=== PATIENT | female | born 1965 | race American Indian/Alaskan Native ===

== ENCOUNTER 2016-10-14 09:16 | Emergency (ER) | payer BC ==
[2016-10-14] MEDS ORDERED: CATAPRES PO ONE (10:14)
--- NOTE | 2016-10-14 10:15 | Emergency Department Report ---
ED General Adult HPI - General Chief complaint: High BP Stated complaint: HIGH BP Time Seen by Provider: 10/14/16 09:59 Source: patient Mode of arrival: Ambulatory Limitations: No Limitations - History of Present Illness Initial comments: 51-year-old -[place] female comes in for elevated blood pressure. Patient reports she's been out of her blood pressure medicine for approximately one year. She reports that the medication that she was on her insurance company would not cover it so therefore she never changed over to another medication. Patient complains of still just a little tired she denies any chest pain or shortness of breath denies any dizziness or blurred vision no nausea no vomiting. She is in no pain at this time. Review of chart shows her blood pressures 202/104. Heart rate 99. - Related Data Previous Rx's Medication Instructions Recorded Last Taken Type Hydrochlorothiazide [HCTZ] 25 mg PO QDAY #90 tablet 10/14/16 Unknown Rx amLODIPine [Norvasc] 10 mg PO DAILY #90 tab 10/14/16 Unknown Rx Allergies Allergy/AdvReac Type Severity Reaction Status Date / Time No Known Allergies Allergy Verified 10/14/16 09:31 ED Review of Systems ROS: Stated complaint: HIGH BP Other details as noted in HPI Constitutional: denies: chills, fever Eyes: denies: eye pain, eye discharge, vision change ENT: denies: ear pain, throat pain Respiratory: denies: cough, shortness of breath, wheezing Cardiovascular: denies: chest pain, palpitations, edema Endocrine: no symptoms reported Gastrointestinal: denies: abdominal pain, nausea, vomiting, diarrhea Genitourinary: denies: urgency, dysuria, discharge Musculoskeletal: denies: back pain, joint swelling, arthralgia Skin: denies: rash Neurological: denies: headache, weakness ED Past Medical Hx - Medications Home Medications: Home Medications Medication Instructions Recorded Confirmed Last Taken Type Hydrochlorothiazide [HCTZ] 25 mg PO QDAY #90 tablet 10/14/16 Unknown Rx amLODIPine [Norvasc] 10 mg PO DAILY #90 tab 10/14/16 Unknown Rx ED Physical Exam - General Limitations: No Limitations - Head Head exam: Present: atraumatic, normocephalic - Eye Eye exam: Present: normal appearance, PERRL, EOMI Pupils: Present: normal accommodation, irregular - ENT ENT exam: Present: mucous membranes moist - Neck Neck exam: Present: normal inspection, full ROM. Absent: tenderness, lymphadenopathy, thyromegaly - Respiratory Respiratory exam: Present: normal lung sounds bilaterally. Absent: respiratory distress, wheezes, chest wall tenderness - Cardiovascular Cardiovascular Exam: Present: regular rate, normal rhythm, normal heart sounds - GI/Abdominal GI/Abdominal exam: Present: soft. Absent: distended, tenderness ED Course Vital Signs 10/14/16 10/14/16 10/14/16 09:31 10:22 12:04 Temperature 98.4 F Pulse Rate 99 H 99 H 75 Respiratory 18 16 Rate Blood Pressure 202/104 202/104 Blood Pressure 171/94 [Left] O2 Sat by Pulse 100 96 Oximetry ED Medical Decision Making - Lab Data Result diagrams: 10/14/16 10:42 10/14/16 10:42 - Medical Decision Making Assessment evaluated by this provider fast track. Discussed the patient that we will give her clonidine 0.1 mg to bring down her blood pressure at this time. We will order a CBC a BMP to check for kidney function. Discussed this patient that we will most likely discharge her home on hydrochlorothiazide 25 mg daily and Norvasc 10 mg one tablet by mouth daily we will refer her to a primary care provider. Discussed with her that she'll need to have her blood pressure checked in 1 week. Patient verbalized understanding Critical care attestation.: If time is entered above; I have spent that time in minutes in the direct care of this critically ill patient, excluding procedure time. ED Disposition Clinical Impression: HTN, goal below 130/80 Disposition: DISCHARGED TO HOME OR SELFCARE Is pt being admited?: No Does the pt Need Aspirin: No Condition: Stable Instructions: Hypertension (ED) Additional Instructions: Very important for her to take care how blood pressure medicine on a daily basis recommend to have your blood pressure rechecked in one week. If he develop any headaches vision change nausea vomiting to return back to the emergency room immediately. Prescriptions: amLODIPine [Norvasc] 10 mg PO DAILY #90 tab Hydrochlorothiazide [HCTZ] 25 mg PO QDAY #90 tablet Referrals: PRIMARY CAREMD [Primary Care Provider] - 3-5 Days DREW CABRALES MD [Staff Physician] - 3-5 Days Forms: Work/School Release Form(ED)
[2016-10-14 10:52] LABS: Hematocrit 41.2 % (30.3-42.9); Hemoglobin 13.6 gm/dl (10.1-14.3); Mean Corpuscular HGB Conc 33 % (30-34); Mean Corpuscular Hemoglobin 31 pg (28-32); Mean Corpuscular Volume 95 fl (79-97); Platelet Count 188 K/mm3 (140-440); Red Blood Count 4.34 M/mm3 (3.65-5.03); Red Cell Distribution Width 13.6 % (13.2-15.2)
[2016-10-14 11:46] LABS: Anion Gap 19 mmol/L; BUN/Creatinine Ratio 12.22; Blood Urea Nitrogen 11 mg/dL (7-17); Carbon Dioxide 23 mmol/L (22-30); Chloride 100.5 mmol/L (98-107); Glucose 100 mg/dL (65-100); Potassium 4.1 mmol/L (3.6-5.0); Sodium 138 mmol/L (137-145)
[2016-10-14 12:05] VITALS: BP 171/94
== END 2016-10-14 12:20 | disposition home or self-care (01) ==
LOC: ED 09:16
DX: I10 Essential (primary) hypertension (principal)
CPT/HCPCS: 36415; 80048; 85027; 99283

== ENCOUNTER 2018-12-14 12:38 | Emergency (ER) | payer BC ==
--- NOTE | 2018-12-14 12:53 | Emergency Department Report ---
Blank Doc - Documentation Documentation: This is a 43-year-old female that presents difficulty hearing from bilateral e ars. This initial assessment/diagnostic orders/clinical plan/treatment(s) is/are subject to change based on patient's health status, clinical progression and re- assessment by fellow clinical providers in the ED. Further treatment and workup at subsequent clinical providers discretion. Patient/guardians urged not to elope from the ED as their condition may be serious if not clinically assessed a nd managed. Initial orders include: 1- Patient sent to [facility] for further evaluation and treatment
[2018-12-14 12:54] VITALS: BP 197/103
[2018-12-14] MEDS ORDERED: AUGMENTIN 875 MG PO ONE (13:32)
--- NOTE | 2018-12-14 13:33 | Emergency Department Report ---
Minor Respiratory - HPI Chief Complaint: Earache Stated Complaint: DIFFICULT HEARING Time Seen by Provider: 12/14/18 12:51 Duration: 1 month Pain Location: Ear (bilateral) Severity: severe Minor Respiratory: Yes Rhinorrhea, Yes Able to Tolerate Fluids, Yes Ear Pain (pressure), No Sore Throat, No Cough, No Sick Contacts, No Hemoptysis, No Chest Pain, No Shortness of Breath, No Fever Other History: Ms. Avina is a 52-year-old female who presents with decreased hearing in both ears. She has had nasal congestion. The ears are "clogged up". No fever. No trauma. ED Review of Systems ROS: Stated complaint: DIFFICULT HEARING Other details as noted in HPI Constitutional: denies: fever, malaise ENT: hearing loss, congestion. denies: dental pain, epistaxis Respiratory: denies: cough, shortness of breath ED Past Medical Hx - Past Medical History Previous Medical History?: No - Surgical History Past Surgical History?: No - Social History Smoking Status: Current Every Day Smoker Substance Use Type: None - Medications Home Medications: Home Medications Medication Instructions Recorded Confirmed Last Taken Type amLODIPine [Norvasc] 10 mg PO DAILY #90 tab 10/14/16 Unknown Rx hydroCHLOROthiazide [HCTZ] 25 mg PO QDAY #90 tablet 10/14/16 Unknown Rx Amoxicillin/Potassium Clav 1 each PO BID 10 Days #20 tablet 12/14/18 Unknown Rx [Augmentin 875-125 Tablet] Minor Respiratory Exam - Exam General: Vital signs noted. No distress. Alert and acting appropriately. Bilateral tympanic membrane: Erythematous with purulent effusion retracted HEENT: Yes Moist Mucous Membranes, No Pharyngeal Erythema, No Pharyngeal Exudates, No Rhinorrhea, No Conjuctival Injection Ear: Both TM Bulge, Both TM Erythema, Neither EAC Pain, Neither EAC Discharge Neck: Yes Supple Lungs: No Labored Respirations, No Retractions, No Use of Accessory Muscles Neurologic: Alert and oriented, no deficits. Musculoskeletal: Unremarkable. ED Course Vital Signs 12/14/18 12:52 Temperature 98.3 F Pulse Rate 98 H Respiratory 16 Rate Blood Pressure 197/103 O2 Sat by Pulse 99 Oximetry ED Medical Decision Making - Medical Decision Making Bilateral otitis media prescribed Augmentin and referred to physician regional sales executive Critical care attestation.: If time is entered above; I have spent that time in minutes in the direct care of this critically ill patient, excluding procedure time. ED Disposition Clinical Impression: Bilateral otitis media with effusion Disposition: TO HOME OR SELFCARE Is pt being admited?: No Does the pt Need Aspirin: No Condition: Stable Instructions: Otitis Media (ED) Prescriptions: Amoxicillin/Potassium Clav [Augmentin 875-125 Tablet] 1 each PO BID 10 Days #20 tablet Referrals: DREW CABRALES MD [Staff Physician] - 3-5 Days
== END 2018-12-14 13:46 | disposition home or self-care (01) ==
LOC: ED 12:38
DX: H65.93 Unspecified nonsuppurative otitis media, bilateral (principal); F17.200 Nicotine dependence, unspecified, uncomplicated
CPT/HCPCS: 99282

== ENCOUNTER 2019-02-15 16:21 | Outpatient (CLI) | payer BC ==
[2019-02-15 16:49] LABS: Basophils % (Auto) 0.5 % (0.0-1.8); Eosinophils # (Auto) 0.1 K/mm3 (0.0-0.4); Eosinophils % (Auto) 1.2 % (0.0-4.3); Hematocrit 42.4 % (30.3-42.9); Hemoglobin 14.5 gm/dl (10.1-14.3); Lymphocytes # (Auto) 2.8 K/mm3 (1.2-5.4); Lymphocytes % (Auto) 40.1 % (13.4-35.0); Mean Corpuscular HGB Conc 34 % (30-34); Mean Corpuscular Volume 95 fl (79-97); Monocytes # (Auto) 0.7 K/mm3 (0.0-0.8); Monocytes % (Auto) 10.3 % (0.0-7.3); Platelet Count 216 K/mm3 (140-440); Red Blood Count 4.45 M/mm3 (3.65-5.03); Red Cell Distribution Width 13.5 % (13.2-15.2)
[2019-02-15 17:05] LABS: Alanine Aminotransferase 27 units/L (7-56); Albumin 4.3 g/dL (3.9-5); BUN/Creatinine Ratio 14; Blood Urea Nitrogen 13 mg/dL (7-17); Calcium 9.1 mg/dL (8.4-10.2); HDL Cholesterol 43 mg/dL (40-59); Hemolysis Index 9; LDL Cholesterol,Direct 119 mg/dL (50-130)
== END 2019-02-15 16:22 | disposition home or self-care (01) ==
LOC: LAB 16:21
PROVIDERS: ATTEND Internal Medicine
DX: E78.00 Pure hypercholesterolemia, unspecified (principal); E88.9 Metabolic disorder, unspecified; R68.89 Other general symptoms and signs; E03.9 Hypothyroidism, unspecified; E11.9 Type 2 diabetes mellitus without complications
CPT/HCPCS: 36415; 80053; 80061; 83036; 84443; 85025

== ENCOUNTER 2019-04-10 12:52 | Observation (INO) | payer BC ==
--- NOTE | 2019-04-10 13:04 | Event Note ---
ED Screening Note Date of service: 04/10/19 Time: 13:01 ED Screening Note: 54 y/o female comes in for increase thirst and urinating times 1 month. Went to [facility] reports that BS was 700 per patient. Triage BS >500. This initial assessment/diagnostic orders/clinical plan/treatment(s) is/are subject to change based on patients health status, clinical progression and re- assessment by fellow clinical providers in the ED. Further treatment and workup at subsequent clinical providers discretion. Patient/guardian urged not to elope from the ED as their condition may be serious if not clinically assessed and managed. Initial orders include:
[2019-04-10] MEDS ORDERED: NACL 0.9% 1000 ML 2,000 ML IV ONE (13:06)
--- NOTE | 2019-04-10 13:14 | Emergency Department Report ---
ED General Adult HPI - General Chief complaint: Hyperglycemia Stated complaint: HIGH GLUCOSE Time Seen by Provider: 04/10/19 13:01 Source: patient, family Mode of arrival: Ambulatory Limitations: No Limitations - History of Present Illness Initial comments: 54-year-old female has been experiencing polyuria polydipsia polyphagia for the last several days to weeks. She finally presented to the emergency department and was found to have hyperglycemia. She was also found to have hypertension. She does have a history of hypertension but admitted noncompliance. She denies difficulty in breathing chest pain abdominal pain or any other symptoms. -: Gradual, days(s), week(s) Associated Symptoms: other - Related Data Previous Rx's Medication Instructions Recorded Last Taken Type amLODIPine [Norvasc] 10 mg PO DAILY #90 tab 10/14/16 Unknown Rx hydroCHLOROthiazide [HCTZ] 25 mg PO QDAY #90 tablet 10/14/16 Unknown Rx Amoxicillin/Potassium Clav 1 each PO BID 10 Days #20 tablet 12/14/18 Unknown Rx [Augmentin 875-125 Tablet] Allergies Allergy/AdvReac Type Severity Reaction Status Date / Time No Known Allergies Allergy Verified 10/14/16 09:31 ED Review of Systems ROS: Stated complaint: HIGH GLUCOSE Other details as noted in HPI Constitutional: denies: chills, fever Eyes: denies: eye pain, eye discharge, vision change ENT: denies: ear pain, throat pain Respiratory: denies: cough, shortness of breath, wheezing Cardiovascular: denies: chest pain, palpitations Endocrine: see HPI, increased hunger, increased thirst Gastrointestinal: denies: abdominal pain, nausea, diarrhea Genitourinary: frequency. denies: urgency, dysuria, discharge Musculoskeletal: denies: back pain, joint swelling, arthralgia Skin: denies: rash, lesions Neurological: denies: headache, weakness, paresthesias Psychiatric: denies: anxiety, depression Hematological/Lymphatic: denies: easy bleeding, easy bruising ED Past Medical Hx - Past Medical History Hx Hypertension: Yes - Surgical History Additional Surgical History: HYSTERECTOMY - Social History Smoking Status: Current Every Day Smoker Substance Use Type: Alcohol - Medications Home Medications: Home Medications Medication Instructions Recorded Confirmed Last Taken Type amLODIPine [Norvasc] 10 mg PO DAILY #90 tab 10/14/16 Unknown Rx hydroCHLOROthiazide [HCTZ] 25 mg PO QDAY #90 tablet 10/14/16 Unknown Rx Amoxicillin/Potassium Clav 1 each PO BID 10 Days #20 tablet 12/14/18 Unknown Rx [Augmentin 875-125 Tablet] ED Physical Exam - General Limitations: No Limitations General appearance: alert, in no apparent distress - Head Head exam: Present: atraumatic, normocephalic - Eye Eye exam: Present: normal appearance. Absent: scleral icterus - ENT ENT exam: Present: mucous membranes moist - Neck Neck exam: Present: normal inspection - Respiratory Respiratory exam: Present: normal lung sounds bilaterally. Absent: respiratory distress - Cardiovascular Cardiovascular Exam: Present: regular rate, normal rhythm. Absent: systolic murmur, diastolic murmur, rubs, gallop - GI/Abdominal GI/Abdominal exam: Present: soft, normal bowel sounds. Absent: distended, tenderness, guarding, rebound, rigid - Extremities Exam Extremities exam: Present: normal inspection - Back Exam Back exam: Present: normal inspection - Neurological Exam Neurological exam: Present: alert, oriented X3, CN II-XII intact. Absent: motor sensory deficit - Psychiatric Psychiatric exam: Present: normal affect, normal mood - Skin Skin exam: Present: warm, dry, intact, normal color. Absent: rash ED Course Vital Signs 04/10/19 04/10/19 04/10/19 13:03 13:36 13:54 Temperature 98.0 F 97.9 F Pulse Rate 82 83 Respiratory 18 16 16 Rate Blood Pressure 213/121 209/117 Blood Pressure 162/96 [Right] O2 Sat by Pulse 100 100 100 Oximetry - Reevaluation(s) Reevaluation #1: Discussed with Dr. Sarabia. Admit to OBS for further stabilization. 04/10/19 14:43 ED Medical Decision Making - Lab Data Result diagrams: 04/10/19 Unknown 04/10/19 Unknown Laboratory Results - last 24 hr 04/10/19 04/10/19 04/10/19 13:10 Unknown Unknown WBC 6.6 RBC 4.82 Hgb 15.6 H Hct 45.5 H MCV 94 MCH 32 MCHC 34 RDW 13.0 L Plt Count 201 Lymph % (Auto) 33.9 Braxton % (Auto) 9.4 H Eos % (Auto) 0.7 Baso % (Auto) 0.4 Lymph # 2.2 Braxton # 0.6 Eos # 0.0 Baso # 0.0 Seg Neutrophils % 55.6 Seg Neutrophils # 3.7 VBG pH Sodium 134 L Potassium 4.4 Chloride 96.1 L Carbon Dioxide 26 Anion Gap 16 BUN 16 Creatinine 0.8 Estimated GFR > 60 BUN/Creatinine Ratio 20 Glucose 626 H* POC Glucose > 500 H Calcium 9.8 Total Bilirubin 0.70 AST 14 ALT 22 Alkaline Phosphatase 122 Total Protein 7.7 Albumin 4.5 Albumin/Globulin Ratio 1.4 04/10/19 Unknown WBC RBC Hgb Hct MCV MCH MCHC RDW Plt Count Lymph % (Auto) Braxton % (Auto) Eos % (Auto) Baso % (Auto) Lymph # Braxton # Eos # Baso # Seg Neutrophils % Seg Neutrophils # VBG pH 7.337 Sodium Potassium Chloride Carbon Dioxide Anion Gap BUN Creatinine Estimated GFR BUN/Creatinine Ratio Glucose POC Glucose Calcium Total Bilirubin AST ALT Alkaline Phosphatase Total Protein Albumin Albumin/Globulin Ratio - EKG Data -: EKG Interpreted by Ga EKG shows normal: sinus rhythm, axis, intervals, QRS complexes, ST-T waves - EKG Data Interpretation: LVH (suggestive findings of deep terminal S) - Radiology Data Radiology results: report reviewed (no acute process) Critical care attestation.: If time is entered above; I have spent that time in minutes in the direct care of this critically ill patient, excluding procedure time. ED Disposition Clinical Impression: Accelerated hypertension, New onset type 2 diabetes mellitus Disposition: OP ADMIT IP TO THIS HOSP Is pt being admited?: Yes Does the pt Need Aspirin: Yes Condition: Stable Instructions: Hypertension (ED), Diabetes Mellitus Type 2 in Adults (ED) Time of Disposition: 14:42
[2019-04-10] MEDS ORDERED: NACL 0.9% 1000 ML 2,000 ML ONE (13:21)
[2019-04-10] MEDS ORDERED: NORMODYNE IV ONE ×3 (13:31→14:38)
[2019-04-10 13:59] LABS: Basophils % (Auto) 0.4 % (0.0-1.8); Eosinophils % (Auto) 0.7 % (0.0-4.3); Hematocrit 45.5 % (30.3-42.9); Hemoglobin 15.6 gm/dl (10.1-14.3); Lymphocytes # (Auto) 2.2 K/mm3 (1.2-5.4); Lymphocytes % (Auto) 33.9 % (13.4-35.0); Mean Corpuscular HGB Conc 34 % (30-34); Mean Corpuscular Volume 94 fl (79-97); Monocytes # (Auto) 0.6 K/mm3 (0.0-0.8); Monocytes % (Auto) 9.4 % (0.0-7.3); Platelet Count 201 K/mm3 (140-440); Red Blood Count 4.82 M/mm3 (3.65-5.03)
[2019-04-10 14:04] LABS: Alanine Aminotransferase 22 units/L (7-56); Albumin 4.5 g/dL (3.9-5); BUN/Creatinine Ratio 20; Blood Urea Nitrogen 16 mg/dL (7-17); Calcium 9.8 mg/dL (8.4-10.2); Hemolysis Index 7
--- NOTE | 2019-04-10 14:04 | XRay Report ---
CHEST 1 VIEW 04/10/2019 1:37 PM INDICATION / CLINICAL INFORMATION: hypertension. COMPARISON: None available. FINDINGS: SUPPORT DEVICES: None. HEART / MEDIASTINUM: No significant abnormality. LUNGS / PLEURA: No significant pulmonary or pleural abnormality. No pneumothorax. ADDITIONAL FINDINGS: No significant additional findings. IMPRESSION: No significant abnormality of the chest. Signer Name: Mason Narvaez MD Signed: 04/10/2019 1:59 PM Workstation Name: [id number]
[2019-04-10] MEDS ORDERED: NACL 0.9% 1000 ML 1,000 ML IV ONE (14:12)
[2019-04-10] MEDS ORDERED: HumuLIN R IV ONE (14:14)
[2019-04-10] MEDS ORDERED: ASPIRIN PO ONE (14:44)
[2019-04-10 16:00] LABS: Bilirubin,Urine NEG (Negative); Blood,Urine SM (Negative); Color,Urine Colorless (Yellow); Mucus,Urine FEW /HPF; Protein,Urine <15 mg/dL mg/dL (Negative); Urobilinogen,Urine < 2.0 mg/dL (<2.0); WBC,Urine < 1.0 /HPF (0.0-6.0)
[2019-04-10] MEDS ORDERED: ASPIRIN ONE (17:28)
[2019-04-10] MEDS ORDERED: SODIUM CHLORIDE FLUSH SYRINGE 10 ML IV PRN (21:15)
[2019-04-10] MEDS ORDERED: ZOFRAN IV PRN (21:15)
[2019-04-10] MEDS ORDERED: REGLAN IV PRN (21:15)
[2019-04-10] MEDS ORDERED: DILAUDID IV PRN (21:15)
[2019-04-10] MEDS ORDERED: PERCOCET 5/325 PO PRN (21:15)
[2019-04-10] MEDS ORDERED: TYLENOL PO PRN (21:15)
--- NOTE | 2019-04-10 21:15 | History and Physical Report ---
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 Past Medical History Hypertension Surgical History HYSTERECTOMY Social History Smoking Status: Current Every Day Smoker Substance Use Type: Alcohol Family History Htn Medications Home Medications: Home Medications Medication Instructions Recorded Confirmed Last Taken Type amLODIPine [Norvasc] 10 mg PO DAILY #90 tab 10/14/16 Unknown Rx hydroCHLOROthiazide [HCTZ] 25 mg PO QDAY #90 tablet 10/14/16 Unknown Rx Amoxicillin/Potassium Clav 1 each PO BID 10 Days #20 tablet 12/14/18 Unknown Rx [Augmentin 875-125 Tablet] Review of Systems ROS: Stated complaint: HIGH GLUCOSE Other details as noted in HPI Constitutional: denies: chills, fever Eyes: denies: eye pain, eye discharge, vision change ENT: denies: ear pain, throat pain Respiratory: denies: cough, shortness of breath, wheezing Cardiovascular: denies: chest pain, palpitations Endocrine: see HPI, increased hunger, increased thirst Gastrointestinal: denies: abdominal pain, nausea, diarrhea Genitourinary: frequency. denies: urgency, dysuria, discharge Musculoskeletal: denies: back pain, joint swelling, arthralgia Skin: denies: rash, lesions Neurological: denies: headache, weakness, paresthesias Psychiatric: denies: anxiety, depression Hematological/Lymphatic: denies: easy bleeding, easy bruising Medications and Allergies Allergies Allergy/AdvReac Type Severity Reaction Status Date / Time No Known Allergies Allergy Verified 10/14/16 09:31 Home Medications Medication Instructions Recorded Confirmed Last Taken Type amLODIPine [Norvasc] 10 mg PO DAILY #90 tab 10/14/16 04/10/19 04/09/19 Rx hydroCHLOROthiazide [HCTZ] 25 mg PO QDAY #90 tablet 10/14/16 04/10/19 04/09/19 Rx Exam - Constitutional Vitals: Temp Pulse Resp BP Pulse Ox 98 F 98 H 16 165/86 100 04/10/19 18:24 04/10/19 18:24 04/10/19 18:24 04/10/19 18:24 04/10/19 18:24 General appearance: Present: no acute distress, well-nourished - EENT Eyes: Present: PERRL ENT: hearing intact, clear oral mucosa - Neck Neck: Present: supple, normal ROM - Respiratory Respiratory effort: normal Respiratory: bilateral: CTA - Cardiovascular Heart rate: 76 Heart Sounds: Present: S1 & S2. Absent: rub, click - Extremities Extremities: no ischemia, pulses intact, pulses symmetrical, No edema Peripheral Pulses: within normal limits - Abdominal General gastrointestinal: Present: soft, non-tender, non-distended, normal bowel sounds Female genitourinary: Present: normal - Integumentary Integumentary: Present: clear, warm, dry - Musculoskeletal Musculoskeletal: gait normal, strength equal bilaterally - Psychiatric Psychiatric: appropriate mood/affect, intact judgment & insight - Neurologic Neurologic: CNII-XII intact, moves all extremities - Allied Health Allied health notes reviewed: nursing, case management Results - Labs CBC & Chem 7: 04/11/19 05:47 04/10/19 Unknown Labs: Laboratory Last Values WBC 6.6 K/mm3 (4.5-11.0) 04/10/19 Unknown RBC 4.82 M/mm3 (3.65-5.03) 04/10/19 Unknown Hgb 15.6 gm/dl (10.1-14.3) H 04/10/19 Unknown Hct 45.5 % (30.3-42.9) H 04/10/19 Unknown MCV 94 fl (79-97) 04/10/19 Unknown MCH 32 pg (28-32) 04/10/19 Unknown MCHC 34 % (30-34) 04/10/19 Unknown RDW 13.0 % (13.2-15.2) L 04/10/19 Unknown Plt Count 201 K/mm3 (140-440) 04/10/19 Unknown Lymph % (Auto) 33.9 % (13.4-35.0) 04/10/19 Unknown [place] % (Auto) 9.4 % (0.0-7.3) H 04/10/19 Unknown Eos % (Auto) 0.7 % (0.0-4.3) 04/10/19 Unknown Baso % (Auto) 0.4 % (0.0-1.8) 04/10/19 Unknown Lymph # 2.2 K/mm3 (1.2-5.4) 04/10/19 Unknown [place] # 0.6 K/mm3 (0.0-0.8) 04/10/19 Unknown Eos # 0.0 K/mm3 (0.0-0.4) 04/10/19 Unknown Baso # 0.0 K/mm3 (0.0-0.1) 04/10/19 Unknown Seg Neutrophils % 55.6 % (40.0-70.0) 04/10/19 Unknown Seg Neutrophils # 3.7 K/mm3 (1.8-7.7) 04/10/19 Unknown VBG pH 7.337 (7.320-7.420) 04/10/19 Unknown Sodium 134 mmol/L (137-145) L 04/10/19 Unknown Potassium 4.4 mmol/L (3.6-5.0) 04/10/19 Unknown Chloride 96.1 mmol/L (98-107) L 04/10/19 Unknown Carbon Dioxide 26 mmol/L (22-30) 04/10/19 Unknown 16 mmol/L 04/10/19 Unknown BUN 16 mg/dL (7-17) 04/10/19 Unknown 0.8 mg/dL (0.7-1.2) 04/10/19 Unknown Estimated GFR > 60 ml/min 04/10/19 Unknown 20 % 04/10/19 Unknown Glucose 626 mg/dL (65-100) H* 04/10/19 Unknown POC Glucose 296 (70-105) H 04/10/19 18:27 Calcium 9.8 mg/dL (8.4-10.2) 04/10/19 Unknown 0.70 mg/dL (0.1-1.2) 04/10/19 Unknown AST 14 units/L (5-40) 04/10/19 Unknown ALT 22 units/L (7-56) 04/10/19 Unknown 122 units/L (35-129) 04/10/19 Unknown 7.7 g/dL (6.3-8.2) 04/10/19 Unknown 4.5 g/dL (3.9-5) 04/10/19 Unknown 1.4 % 04/10/19 Unknown Colorless (Yellow) 04/10/19 13:23 Clear (Clear) 04/10/19 13:23 5.0 (5.0-7.0) 04/10/19 13:23 Ur Specific [place] 1.027 (1.003-1.030) 04/10/19 13:23 <15 mg/dl mg/dL (Negative) 04/10/19 13:23 >=500 mg/dL (Negative) 04/10/19 13:23 Neg mg/dL (Negative) 04/10/19 13:23 Sm (Negative) 04/10/19 13:23 Neg (Negative) 04/10/19 13:23 Neg (Negative) 04/10/19 13:23 < 2.0 mg/dL (<2.0) 04/10/19 13:23 Ur Leukocyte Esterase Neg (Negative) 04/10/19 13:23 < 1.0 /HPF (0.0-6.0) 04/10/19 13:23 1.0 /HPF (0.0-6.0) 04/10/19 13:23 U Epithel Cells (Auto) < 1.0 /HPF (0-13.0) 04/10/19 13:23 Few /HPF 04/10/19 13:23 Short CBC 04/10/19 04/11/19 Range/Units Unknown 05:47 WBC 6.6 6.1 (4.5-11.0) K/mm3 Hgb 15.6 H 13.9 (10.1-14.3) gm/dl Hct 45.5 H 39.8 (30.3-42.9) % Plt Count 201 171 (140-440) K/mm3 BMP 04/10/19 Unknown Sodium 134 L Potassium 4.4 Chloride 96.1 L Carbon Dioxide 26 BUN 16 Creatinine 0.8 Glucose 626 H* Calcium 9.8 Liver Function 04/10/19 Range/Units Unknown Total Bilirubin 0.70 (0.1-1.2) mg/dL AST 14 (5-40) units/L ALT 22 (7-56) units/L Alkaline Phosphatase 122 (35-129) units/L Albumin 4.5 (3.9-5) g/dL Urine 08/19/19 Range/Units 13:23 Urine Color Colorless (Yellow) Urine pH 5.0 (5.0-7.0) Ur Specific [place] 1.027 (1.003-1.030) Urine Protein <15 mg/dl (Negative) mg/dL Urine Glucose (UA) >=500 (Negative) mg/dL - Imaging and Cardiology EKG: report reviewed (NSR 77/min LVH) Chest x-ray: report reviewed (NAF) Assessment and Plan Advance Directives: Yes (Full code) VTE prophylaxis?: Chemical Plan of care discussed with patient/family: Yes - Patient Problems (1) Diabetic hyperosmolar non-ketotic state Current Visit: Yes Status: Acute Plan to address problem: Patient presents with new onset diabetes Hba1c of 12 Hyperosmolar state--moderate Started on frequent accucheks q4h and High dose s/s coverage Also started on Novolog mix 15 units bid Dosage to be adjusted accordingly (2) Hypertensive emergency without congestive heart failure Current Visit: Yes Status: Acute Plan to address problem: Was given IV Hydralazine IV labetolol Added Amlodipine 10 mg po qd and Losartan 100 mg po qd (3) Noncompliance Current Visit: Yes Status: Chronic Plan to address problem: Counselled about untreated Htn and DM (4) New onset type 2 diabetes mellitus Current Visit: Yes Status: Acute Plan to address problem: Patient to be educated on Diabetes and follow up with pcp on regular basis (5) DVT prophylaxis Current Visit: Yes Status: Acute Plan to address problem: On Lovenox and GI prophylaxis
[2019-04-10] MEDS: PEPCID IV SCH (23:05)
[2019-04-10] MEDS: HumaLOG SUB-Q SCH (23:05)
[2019-04-10] MEDS: SODIUM CHLORIDE FLUSH SYRINGE 10 ML IV SCH (23:05)
[2019-04-10] MEDS: NACL 0.9% 1000 ML 1,000 ML IV SCH (23:27)
[2019-04-10] MEDS: APRESOLINE IV PRN (23:45)
[2019-04-11] MEDS: HumaLOG SUB-Q SCH ×6 (02:11→23:36)
[2019-04-11 06:07] LABS: Basophils % (Auto) 0.5 % (0.0-1.8); Eosinophils # (Auto) 0.1 K/mm3 (0.0-0.4); Eosinophils % (Auto) 1.1 % (0.0-4.3); Hematocrit 39.8 % (30.3-42.9); Hemoglobin 13.9 gm/dl (10.1-14.3); Lymphocytes # (Auto) 2.2 K/mm3 (1.2-5.4); Lymphocytes % (Auto) 36.9 % (13.4-35.0); Mean Corpuscular HGB Conc 35 % (30-34); Mean Corpuscular Volume 93 fl (79-97); Monocytes # (Auto) 0.6 K/mm3 (0.0-0.8); Monocytes % (Auto) 10.2 % (0.0-7.3); Platelet Count 171 K/mm3 (140-440); Red Blood Count 4.27 M/mm3 (3.65-5.03); Red Cell Distribution Width 12.9 % (13.2-15.2)
[2019-04-11 06:37] LABS: Alanine Aminotransferase 18 units/L (7-56); Albumin 3.5 g/dL (3.9-5); BUN/Creatinine Ratio 17; Blood Urea Nitrogen 10 mg/dL (7-17); Calcium 8.7 mg/dL (8.4-10.2); Hemolysis Index 8
[2019-04-11] MEDS: COZAAR PO SCH (08:15)
[2019-04-11] MEDS: APRESOLINE IV PRN (08:19)
[2019-04-11] MEDS: HCTZ PO SCH (10:46)
[2019-04-11] MEDS: NORVASC PO SCH (10:46)
[2019-04-11] MEDS: PEPCID IV SCH (10:47)
[2019-04-11] MEDS: SODIUM CHLORIDE FLUSH SYRINGE 10 ML IV SCH ×2 (10:47→21:57)
[2019-04-11] MEDS: NACL 0.9% 1000 ML 1,000 ML IV SCH (12:45)
--- NOTE | 2019-04-11 15:33 | Progress Note ---
Assessment and Plan / Diabetic hyperosmolar non-ketotic state Patient presented with new onset diabetes Hba1c of 12 Hyperosmolar state--moderate Started on frequent accucheks q4h and High dose s/s coverage Also started on Novolog mix 15 units bid - will increase to 20 BID Dosage to be adjusted accordingly / Hypertensive emergency without congestive heart failure Was given IV Hydralazine IV labetolol Added Amlodipine 10 mg po qd and Losartan 100 mg po qd / Noncompliance Counselled about untreated Htn and DM /hypokalemia, repleted / New onset type 2 diabetes mellitus Patient to be educated on Diabetes and follow up with pcp on regular basis /DVT prophylaxis On Lovenox and GI prophylaxis Subjective Date of service: 04/11/19 Interval history: Patient seen and examined denies any chest pain or SOB BG still > 300s counselled and updated at bedside Objective - Constitutional Vitals: Vital Signs - 12hr 04/11/19 04/11/19 04/11/19 05:59 08:15 08:19 Temperature 98.7 F Pulse Rate 75 78 78 Respiratory 20 Rate Blood Pressure 166/97 210/106 210/106 O2 Sat by Pulse 95 Oximetry 04/11/19 04/11/19 10:43 10:46 Temperature 98.5 F Pulse Rate 90 85 Respiratory 16 Rate Blood Pressure 185/102 185/102 O2 Sat by Pulse 98 Oximetry General appearance: Present: no acute distress, well-nourished - EENT Eyes: PERRL, EOM intact ENT: hearing intact, clear oral mucosa Ears: bilateral: normal - Neck Neck: supple, normal ROM - Respiratory Respiratory effort: normal Respiratory: bilateral: CTA - Cardiovascular Rhythm: regular Heart Sounds: Present: S1 & S2. Absent: gallop, rub Extremities: pulses intact, No edema, normal color, Full ROM - Gastrointestinal General gastrointestinal: Present: soft, non-tender, non-distended, normal bowel sounds - Integumentary Integumentary: clear, warm, dry - Musculoskeletal Musculoskeletal: 1, strength equal bilaterally - Neurologic Neurologic: moves all extremities - Psychiatric Psychiatric: memory intact, appropriate mood/affect, intact judgment & insight - Labs CBC & Chem 7: 04/11/19 05:47 04/12/19 13:20 Labs: Abnormal lab results 04/10/19 04/10/19 04/10/19 Range/Units 15:37 18:27 21:20 MCH (28-32) pg MCHC (30-34) % RDW (13.2-15.2) % Lymph % (Auto) (13.4-35.0) % [place] % (Auto) (0.0-7.3) % Potassium (3.6-5.0) mmol/L Creatinine (0.7-1.2) mg/dL Glucose (65-100) mg/dL POC Glucose 360 H 296 H (70-105) Hemoglobin A1c 12.0 H (4-6) % Total Protein (6.3-8.2) g/dL Albumin (3.9-5) g/dL 04/10/19 04/11/19 04/11/19 Range/Units 22:09 02:13 05:47 MCH 33 H (28-32) pg MCHC 35 H (30-34) % RDW 12.9 L (13.2-15.2) % Lymph % (Auto) 36.9 H (13.4-35.0) % [place] % (Auto) 10.2 H (0.0-7.3) % Potassium (3.6-5.0) mmol/L Creatinine (0.7-1.2) mg/dL Glucose (65-100) mg/dL POC Glucose 309 H 260 H (70-105) Hemoglobin A1c (4-6) % Total Protein (6.3-8.2) g/dL Albumin (3.9-5) g/dL 04/11/19 04/11/19 04/11/19 Range/Units 05:47 06:10 10:58 MCH (28-32) pg MCHC (30-34) % RDW (13.2-15.2) % Lymph % (Auto) (13.4-35.0) % [place] % (Auto) (0.0-7.3) % Potassium 3.3 L D (3.6-5.0) mmol/L Creatinine 0.6 L (0.7-1.2) mg/dL Glucose 215 H (65-100) mg/dL POC Glucose 225 H 195 H (70-105) Hemoglobin A1c (4-6) % Total Protein 6.2 L (6.3-8.2) g/dL Albumin 3.5 L (3.9-5) g/dL 08/20/19 Range/Units 14:22 MCH (28-32) pg MCHC (30-34) % RDW (13.2-15.2) % Lymph % (Auto) (13.4-35.0) % [place] % (Auto) (0.0-7.3) % Potassium (3.6-5.0) mmol/L Creatinine (0.7-1.2) mg/dL Glucose (65-100) mg/dL POC Glucose 253 H (70-105) Hemoglobin A1c (4-6) % Total Protein (6.3-8.2) g/dL Albumin (3.9-5) g/dL
[2019-04-11] MEDS: PEPCID PO SCH (21:57)
[2019-04-12] MEDS: HumaLOG SUB-Q SCH ×3 (02:22→10:32)
[2019-04-12] MEDS: NACL 0.9% 1000 ML 1,000 ML IV SCH (03:11)
[2019-04-12] MEDS: COZAAR PO SCH (10:11)
[2019-04-12] MEDS: HCTZ PO SCH (10:11)
[2019-04-12] MEDS: PEPCID PO SCH (10:12)
[2019-04-12] MEDS: NORVASC PO SCH (10:12)
[2019-04-12] MEDS: SODIUM CHLORIDE FLUSH SYRINGE 10 ML IV SCH (10:13)
[2019-04-12 12:31] VITALS: BP 147/102
--- NOTE | 2019-04-12 12:52 | Discharge Summary ---
Providers - Providers Date of Admission: 04/10/19 14:43 Date of discharge: 04/12/19 Attending physician: SHELBI SERNA 04/10/19 Consult to Case Management [CONS] Routine Services Needed at Discharge: Home Health Services Notified:: COPY GIVEN TO CM 04/10/19 21:16 Consult to Dietitian/Nutrition [CONS] Routine Physician Instructions: Reason For Exam: Reason for Consult: Diet education [facility] Hospital[facility] Condition: Stable Hospital course: Discharge diagnosis: (1) Diabetic hyperosmolar non-ketotic state Current Visit: Yes Status: Acute Plan to address problem: Patient presents with new onset diabetes Hba1c of 12 Hyperosmolar state--moderate Started on frequent accucheks q4h and High dose s/s coverage Also started on Novolog mix 15 units bid Dosage to be adjusted accordingly (2) Hypertensive emergency without congestive heart failure Current Visit: Yes Status: Acute Plan to address problem: Was given IV Hydralazine IV labetolol Added Amlodipine 10 mg po qd and Losartan 100 mg po qd (3) Noncompliance Current Visit: Yes Status: Chronic Plan to address problem: Counselled about untreated Htn and DM (4) New onset type 2 diabetes mellitus Current Visit: Yes Status: Acute Plan to address problem: Patient to be educated on Diabetes and follow up with pcp on regular basis (5) DVT prophylaxis Current Visit: Yes Status: Acute Plan to address problem: On Lovenox and GI prophylaxis Disposition: [id number] HOME UNDER HOME [facility] Time spent for discharge: 34 minutes Core Measure Documentation - Palliative Care Palliative Care/ Comfort Measures: Not Applicable - Core Measures Any of the following diagnoses?: none Exam - Constitutional Vitals: Temp Pulse Resp BP Pulse Ox 98.1 F 75 16 147/102 98 04/12/19 12:29 04/12/19 12:29 04/12/19 12:29 04/12/19 12:29 04/12/19 12:29 Plan Activity: advance as tolerated Weight Bearing Status: Weight Bear as Tolerated Diet: diabetic Special Instructions: record daily BP diary, record blood sugar diary, home health RN Follow up with: RAMIRO HERRERA MD [Primary Care Provider] - 7 Days KIERA MONTEIRO MD [Staff Physician] - 7 Days Prescriptions: Losartan [Cozaar] 100 mg PO QDAY #30 tablet Metformin HCl [metFORMIN] 1,000 mg PO BID #60 tablet Insulin NPH/Regular [NovoLIN 70/30] 22 unit SUB-Q BIDDIAB #10 ml
[2019-04-12 13:59] LABS: BUN/Creatinine Ratio 12; Blood Urea Nitrogen 7 mg/dL (7-17); Calcium 9.5 mg/dL (8.4-10.2); Hemolysis Index 4
[2019-04-12] MEDS ORDERED: K-DUR PO ONE (14:00)
== END 2019-04-12 14:55 | disposition home health service (06) ==
LOC: ED 12:52 → 3A 14:43
PROVIDERS: ADMIT Urology; ATTEND Urology
DX: E11.00 Type 2 diabetes mellitus with hyperosmolarity without nonketotic hyperglycemic-hyperosmolar coma (NKHHC) (principal); I16.1 Hypertensive emergency; Z91.19 Patient's noncompliance with other medical treatment and regimen; F17.210 Nicotine dependence, cigarettes, uncomplicated
CPT/HCPCS: 36415; 71045; 80048; 80053; 81001; 82805; 82962; 83036; 85025; 93005; 93010; 96372; 96374; 96375; 96376; 99284; G0378; J0360; J7030; J1815

== ENCOUNTER 2019-06-15 12:13 | Outpatient (CLI) | payer BC | END 2019-06-15 12:14 | disposition home or self-care (01) | LOC: LAB 12:13 | PROVIDERS: ATTEND Internal Medicine | DX: E11.9 Type 2 diabetes mellitus without complications (principal); I10 Essential (primary) hypertension; Z90.710 Acquired absence of both cervix and uterus; F17.200 Nicotine dependence, unspecified, uncomplicated | CPT/HCPCS: 36415; 83036 ==

== ENCOUNTER 2020-11-09 08:54 | Emergency (ER) | payer BC ==
[2020-11-09 08:58] VITALS: BP 196/105
--- NOTE | 2020-11-09 09:52 | XRay Report ---
CHEST 2 VIEWS INDICATION / CLINICAL INFORMATION: COUGH X 1 MONTH. COMPARISON: 04/10/2019 FINDINGS: SUPPORT DEVICES: None. HEART / MEDIASTINUM: No significant abnormality. LUNGS / PLEURA: No significant pulmonary or pleural abnormality. No pneumothorax. No evidence of pneu monia. ADDITIONAL FINDINGS: No significant additional findings. IMPRESSION: 1. No acute findings. No interval change. Signer Name: Brandy Garduno MD Signed: 11/09/2020 9:48 AM Workstation Name: [id number]
--- NOTE | 2020-11-09 09:53 | Emergency Department Report ---
ED General Adult HPI - General Chief complaint: Weakness Stated complaint: COLD Time Seen by Provider: 11/09/20 09:23 Source: patient Mode of arrival: Ambulatory Limitations: No Limitations - History of Present Illness Initial comments: 55-year-old female presents to the emergency room complaining of cough since September. the cough is now productive of green phlegm and her right ear feeling stuffy. Patient states the cough started before she received her first Covid vaccine in September. she received her second Covid vaccine on October 22, 2020. Patient has a history of high blood pressure her blood pressure today is 196/105 she states she has been out of all her blood pressure medicines for about a month she also smokes cigarettes, half a pack a day. She denies any fever no nausea no vomiting no loss of taste and smell. She denies headache she denies chest pain she denies shortness of breath she denies dizziness she denies weakness, no current pain. Patient is in no acute distress. Severity scale (0 -10): 0 Associated Symptoms: cough, other (Right ear feeling full). denies: confusion, chest pain, headaches, loss of appetite, malaise, nausea/vomiting, shortness of breath Treatments Prior to Arrival: none - Related Data Previous Rx's Medication Instructions Recorded Last Taken Type amLODIPine 10 mg PO DAILY #90 tab 10/14/16 04/09/19 Rx hydroCHLOROthiazide [HCTZ] 25 mg PO QDAY #90 tablet 10/14/16 04/09/19 Rx Insulin NPH/Regular [NovoLIN 70/30] 22 unit SUB-Q BIDDIAB #10 ml 04/12/19 Unknown Rx Losartan [Cozaar] 100 mg PO QDAY #30 tablet 04/12/19 Unknown Rx Metformin HCl [metFORMIN] 1,000 mg PO BID #60 tablet 04/12/19 Unknown Rx Amoxicillin [Trimox CAP] 1,000 mg PO Q8H 5 Days #30 capsule 11/09/20 Unknown Rx Losartan [Cozaar] 100 mg PO QDAY #30 tablet 11/09/20 Unknown Rx amLODIPine 10 mg PO DAILY #30 tab 11/09/20 Unknown Rx hydroCHLOROthiazide [HCTZ] 25 mg PO QDAY #30 tablet 11/09/20 Unknown Rx Allergies Allergy/AdvReac Type Severity Reaction Status Date / Time No Known Allergies Allergy Verified 10/14/16 09:31 ED Review of Systems ROS: Stated complaint: COLD Other details as noted in HPI Comment: All other systems reviewed and negative Constitutional: denies: chills, fever, malaise, weakness ENT: other (Right ear discomfort). denies: throat pain, dental pain, hearing loss Respiratory: cough. denies: shortness of breath, SOB with exertion, SOB at rest, wheezing Cardiovascular: denies: chest pain, palpitations, dyspnea on exertion Endocrine: no symptoms reported Gastrointestinal: denies: abdominal pain, nausea, vomiting Genitourinary: denies: dysuria, frequency Musculoskeletal: denies: back pain, joint swelling Neurological: denies: headache, weakness, numbness, paresthesias, confusion, abnormal gait, vertigo Psychiatric: denies: anxiety, depression, auditory hallucinations, visual hallucinations, homicidal thoughts ED Past Medical Hx - Past Medical History Previous Medical History?: Yes Hx Hypertension: Yes Hx Congestive Heart Failure: No Hx Diabetes: Yes Hx Asthma: No Hx COPD: No - Surgical History Past Surgical History?: Yes Additional Surgical History: HYSTERECTOMY - Social History Smoking Status: Current Every Day Smoker Substance Use Type: Alcohol - Medications Home Medications: Home Medications Medication Instructions Recorded Confirmed Last Taken Type amLODIPine 10 mg PO DAILY #90 tab 10/14/16 04/10/19 04/09/19 Rx hydroCHLOROthiazide [HCTZ] 25 mg PO QDAY #90 tablet 10/14/16 04/10/19 04/09/19 Rx Insulin NPH/Regular [NovoLIN 70/30] 22 unit SUB-Q BIDDIAB #10 ml 04/12/19 Unknown Rx Losartan [Cozaar] 100 mg PO QDAY #30 tablet 04/12/19 Unknown Rx Metformin HCl [metFORMIN] 1,000 mg PO BID #60 tablet 04/12/19 Unknown Rx Amoxicillin [Trimox CAP] 1,000 mg PO Q8H 5 Days #30 capsule 11/09/20 Unknown Rx Losartan [Cozaar] 100 mg PO QDAY #30 tablet 11/09/20 Unknown Rx amLODIPine 10 mg PO DAILY #30 tab 11/09/20 Unknown Rx hydroCHLOROthiazide [HCTZ] 25 mg PO QDAY #30 tablet 11/09/20 Unknown Rx ED Physical Exam - General Limitations: No Limitations General appearance: alert, in no apparent distress - Head Head exam: Present: atraumatic - Eye Eye exam: Present: normal appearance - ENT ENT exam: Present: mucous membranes moist, normal external ear exam, other (Right TM redness and dullness noted) - Neck Neck exam: Present: normal inspection, full ROM - Respiratory Respiratory exam: Present: normal lung sounds bilaterally. Absent: respiratory distress, wheezes, rales, rhonchi, chest wall tenderness - Cardiovascular Cardiovascular Exam: Present: regular rate, normal rhythm, normal heart sounds - GI/Abdominal GI/Abdominal exam: Present: soft - Rectal Rectal exam: Present: deferred - External exam: Present: normal external exam - Back Exam Back exam: Present: normal inspection - Neurological Exam Neurological exam: Present: alert, oriented X3 - Psychiatric Psychiatric exam: Present: normal affect - Skin Skin exam: Present: warm, dry, intact, normal color ED Course Vital Signs 11/09/20 08:55 Temperature 98 F Pulse Rate 95 H Respiratory 16 Rate Blood Pressure 196/105 O2 Sat by Pulse 98 Oximetry - Reevaluation(s) Reevaluation #1: 11/09/20 10:02 Patient in no acute distress awaiting chest x-ray results ED Medical Decision Making - Radiology Data Radiology results: report reviewed CXR No acute findings - Medical Decision Making 55-year-old female presents with cough since September and right ear discomfort on examination right otitis media was found. Chest x-ray done there is no acute findings. Patient is hypertensive and she has been out of her medications x1 month she is asymptomatic refill of all her blood pressure medicine x30 days given with the understanding that patient will follow up with primary care doctor for ongoing treatment and subsequent refills of her blood pressure medicines. She is treated for otitis media with amoxicillin. - Differential Diagnosis Right otitis media, hypertension, URI Critical Care Time: No Critical care attestation.: If time is entered above; I have spent that time in minutes in the direct care of this critically ill patient, excluding procedure time. ED Disposition Clinical Impression: Right otitis media Qualifiers: Otitis media type: suppurative Chronicity: acute Recurrence: non-recurrent Spontaneous tympanic membrane rupture: without spontaneous rupture Qualified Code(s): H66.001 - Acute suppurative otitis media without spontaneous rupture of ear drum, right ear Hypertension Qualifiers: Hypertension type: essential hypertension Qualified Code(s): I10 - Essential (primary) hypertension Disposition: TO HOME OR SELFCARE Is pt being admited?: No Does the pt Need Aspirin: No Condition: Stable Instructions: Otitis Media, Adult, [id number], Hypertension, Adult, [id number], Hypertension (ED) Additional Instructions: Rest increase or your oral fluids okay to take [id number] cough medicine as needed please take medication as prescribed. Follow-up with your primary care doctor regarding your treatment of your blood pressure and subsequent prescriptions. Stop smoking Prescriptions: amLODIPine 10 mg PO DAILY #30 tab Losartan [Cozaar] 100 mg PO QDAY #30 tablet hydroCHLOROthiazide [HCTZ] 25 mg PO QDAY #30 tablet Amoxicillin [Trimox CAP] 1,000 mg PO Q8H 5 Days #30 capsule Referrals: PRIMARY CAREMD [Primary Care Provider] - 3-5 Days MEGHANN MOSLEY MD [Staff Physician] - 3-5 Days Time of Disposition: 10:12
== END 2020-11-09 10:24 | disposition home or self-care (01) ==
LOC: ED 08:54
DX: H66.91 Otitis media, unspecified, right ear (principal); I10 Essential (primary) hypertension; E11.9 Type 2 diabetes mellitus without complications; F17.200 Nicotine dependence, unspecified, uncomplicated; Z90.710 Acquired absence of both cervix and uterus; Z79.2 Long term (current) use of antibiotics; Z79.84 Long term (current) use of oral hypoglycemic drugs; Z79.899 Other long term (current) drug therapy
CPT/HCPCS: 71046

== ENCOUNTER 2022-01-02 14:34 | Outpatient (CLI) | payer BC | END 2022-01-02 14:35 | disposition home or self-care (01) | LOC: MAMMO 14:34 | PROVIDERS: ATTEND Internal Medicine | DX: Z12.31 Encounter for screening mammogram for malignant neoplasm of breast (principal) | CPT/HCPCS: 77067 ==